=== PATIENT | female | born 1995 | race Caucasian/White ===

== ENCOUNTER 2018-05-17 00:13 | Emergency (ER) | payer SELFPAY ==
--- NOTE | 2018-05-17 00:25 | ER Report ---
History and Physical Time Seen By MD: 00:17 HPI/ROS CHIEF COMPLAINT: Back pain, right foot pain HISTORY OF PRESENT ILLNESS: 23-year-old female presents ambulatory to the ER complaining of numerous complaints. She's complaining of severe left sciatic pain down her left lower extremity. She's been having diarrhea for 5 days. She was seen at urgent care today was severe nausea and diarrhea. She was started on Cipro after being diagnosed with a UTI. She's been having fevers for 5 days of diarrhea. She notes no blood in the diarrhea or mucus. Patient denies recent travel or exposure to ill contacts. 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 She is a student at . She was seen earlier today at urgent care. She was diagnosed with urinary tract infection, and infectious diarrhea. She was started on Cipro 500 mg twice a day and given Zofran for nausea control. Patient's also complaining of severe bilateral metatarsalgia from the time she spends on her feet at work 3 evenings the night after attending college. She notes the pain gets better with ibuprofen, but never completely goes away. It persisted for several weeks. It's worse now. She isn't wearing arch supports with little improvement of her symptoms. REVIEW OF SYSTEMS: Respiratory: No cough, no dyspnea. Cardiovascular: No chest pain, no palpitations. Gastrointestinal: As above Musculoskeletal: As above Allergies: Coded Allergies: Sulfa (Sulfonamide Antibiotics) (Verified Allergy, Unknown, 05/17/18) amoxicillin (Verified Allergy, Unknown, 05/17/18) Home Meds Active Scripts Prednisone 10 Mg Tab (PREDNISONE 10 MG TAB) 10 Mg Tablet, 10 MG PO QDAY PRN for reduce inflammation, #9 2 tabs daily for 3 days 1 tab daily for 3 days Prov:WILBER PARRISHKike Otto DO 05/17/18 Reported Medications Ondansetron (ZOFRAN ODT) 4 Mg Tab.rapdis, 4 MG PO Q6-8H, TAB.MARTI 05/17/18 Ciprofloxacin 500 Mg Tab (CIPROFLOXACIN 500 MG TAB) 500 Mg Tablet, 500 MG PO Q12H, #14 TAB 05/17/18 Reviewed Nurses Notes: Yes Old Medical Records Reviewed: Yes Constitutional Vital Sign - Last 24 Hours 05/17/18 05/17/18 05/17/18 05/17/18 00:20 00:23 00:30 01:13 Temp 98.3 Pulse 84 Resp 20 B/P (MAP) 128/73 (91) 128/73 110/75 (87) Pulse Ox 95 96 05/17/18 01:43 Pulse 79 Pulse Ox 98 Intake and Output 05/16/18 05/16/18 05/17/18 15:00 23:00 07:00 Intake Total 1000 ml Balance 1000 ml Physical Exam General Appearance: The patient is alert, has no immediate need for airway protection and no current signs of toxicity. Vital signs stable, afebrile HEENT: Pupils equal and round no injection. TMs normal, oropharynx without redness or exudate Respiratory: Chest is non tender, lungs are clear to auscultation. Cardiac: regular rate and rhythm Gastrointestinal: Abdomen is soft and non tender, no masses, bowel sounds normal. Musculoskeletal: Neck: Neck is supple and non tender. Back:, There is no tenderness over the lumbar midline or paraspinous muscles. There is some tenderness over the left SI joint and along the course of the sciatic nerve. Extremities have full range of motion and are non tender. There is tenderness to the metatarsal heads of both feet, the right greater than left. Skin: No rashes or lesions. DIFFERENTIAL DIAGNOSIS: After history and physical exam differential diagnosis was considered for back pain including but not limited to muscular pain, herniated disc, spine fracture, intra-abdominal causes and urinary tract infection. Medical Decision Making Data Points Result Diagram: 05/17/1813905/17/18 014 Laboratory Hematology Test 05/17/18 01:40 Red Blood Count 4.59 M/uL (4.17-5.56) Mean Corpuscular Volume 88.1 fL (80.0-96.0) Mean Corpuscular Hemoglobin 30.3 pg (26.0-33.0) Mean Corpuscular Hemoglobin Concent 34.4 g/dL (32.0-36.0) Red Cell Distribution Width 12.4 % (11.5-14.5) Mean Platelet Volume 7.4 fL (7.2-11.1) Neutrophils (%) (Auto) 69.7 % (39.4-72.5) Lymphocytes (%) (Auto) 15.2 % (17.6-49.6) Monocytes (%) (Auto) 11.9 % (4.1-12.4) Eosinophils (%) (Auto) 2.6 % (0.4-6.7) Basophils (%) (Auto) 0.6 % (0.3-1.4) Nucleated RBC Relative Count (auto) 0.0 /100WBC Neutrophils # (Auto) 4.2 K/uL (2.0-7.4) Lymphocytes # (Auto) 0.9 K/uL (1.3-3.6) Monocytes # (Auto) 0.7 K/uL (0.3-1.0) Eosinophils # (Auto) 0.2 K/uL (0.0-0.5) Basophils # (Auto) 0.0 K/uL (0.0-0.1) Nucleated RBC Absolute Count (auto) 0.00 K/uL Sodium Level 137 mmol/L (137-145) Potassium Level 3.8 mmol/L (3.5-5.0) Chloride Level 104 mmol/L (98-107) Carbon Dioxide Level 23 mmol/L (22-31) Blood Urea Nitrogen 8 mg/dl (7-18) Creatinine 0.70 mg/dl (0.52-1.04) Glomerular Filtration Rate Calc > 60.0 Random Glucose 98 mg/dl (75-110) Calcium Level 9.4 mg/dl (8.4-10.2) Total Bilirubin 0.8 mg/dl (0.2-1.3) Aspartate Amino Transf (AST/SGOT) 23 U/L (0-35) Alanine Aminotransferase (ALT/SGPT) 40 U/L (0-56) Alkaline Phosphatase 67 U/L (0-126) Total Protein 6.9 g/dl (6.3-8.2) Albumin 4.0 g/dl (3.5-5.0) Chemistry Test 05/17/18 01:40 White Blood Count 6.0 k/uL (4.5-11.0) Red Blood Count 4.59 M/uL (4.17-5.56) Hemoglobin 13.9 g/dL (12.0-16.0) Hematocrit 40.4 % (34.0-47.0) Mean Corpuscular Volume 88.1 fL (80.0-96.0) Mean Corpuscular Hemoglobin 30.3 pg (26.0-33.0) Mean Corpuscular Hemoglobin Concent 34.4 g/dL (32.0-36.0) Red Cell Distribution Width 12.4 % (11.5-14.5) Platelet Count 309 K/uL (150-450) Mean Platelet Volume 7.4 fL (7.2-11.1) Neutrophils (%) (Auto) 69.7 % (39.4-72.5) Lymphocytes (%) (Auto) 15.2 % (17.6-49.6) Monocytes (%) (Auto) 11.9 % (4.1-12.4) Eosinophils (%) (Auto) 2.6 % (0.4-6.7) Basophils (%) (Auto) 0.6 % (0.3-1.4) Nucleated RBC Relative Count (auto) 0.0 /100WBC Neutrophils # (Auto) 4.2 K/uL (2.0-7.4) Lymphocytes # (Auto) 0.9 K/uL (1.3-3.6) Monocytes # (Auto) 0.7 K/uL (0.3-1.0) Eosinophils # (Auto) 0.2 K/uL (0.0-0.5) Basophils # (Auto) 0.0 K/uL (0.0-0.1) Nucleated RBC Absolute Count (auto) 0.00 K/uL Glomerular Filtration Rate Calc > 60.0 Calcium Level 9.4 mg/dl (8.4-10.2) Total Bilirubin 0.8 mg/dl (0.2-1.3) Aspartate Amino Transf (AST/SGOT) 23 U/L (0-35) Alanine Aminotransferase (ALT/SGPT) 40 U/L (0-56) Alkaline Phosphatase 67 U/L (0-126) Total Protein 6.9 g/dl (6.3-8.2) Albumin 4.0 g/dl (3.5-5.0) EKG/Imaging Imaging X-ray: Lumbar spine 2 views was obtained. I viewed the images myself on the PACS system. My interpretation of the images is: No fracture no dislocation or malalignment, displaces are well preserved. Normal curvature noted.. The radiologist interpretation had no clinically significant variation from this interpretation. ED Course/Re-evaluation Clinical Indication for ER IV: Hydration, IV Access ED Course Patient was admitted to an examination room. H&P was done. The differential diagnoses was considered. On clinical examination. She has exacerbation of numerous complaints, which sounds like chronic metatarsalgia, sciatic nerve problems. She is currently got a urinary tract infection and gastroenteritis with infectious diarrhea. He was started on Cipro earlier today. I think that she is having reactive arthritis and inflammation to her current infection.. CBC and chemistries were unremarkable. Patient was treated with IV fluid hy dration. She received Toradol 60 mg IM and Norflex muscle relaxant. She'll be given 40 of prednisone at discharge. She be discharged with 2 Lortab pills to use for temporary relief. Patient will be treated with a prednisone taper. She is advised to continue on the Cipro until it's finished. Decision to Disposition Date: May 17, 2018 Decision to Disposition Time: 01:50 Depart Departure Latest Vital Signs Vital Signs Date Time Temp Pulse Resp B/P (MAP) Pulse Ox O2 Delivery O2 Flow Rate FiO2 05/17/18 01:43 79 98 05/17/18 00:30 110/75 (87) 05/17/18 00:23 98.3 20 Impression: Primary Impression: Diarrhea Additional Impressions: Sciatica Metatarsalgia Urinary tract infection Condition: Improved Disposition: HOME OR SELF-CARE Referrals: ALBERTO FREITAS MD, FARRUKH MD New Scripts Prednisone 10 Mg Tab (PREDNISONE 10 MG TAB) 10 Mg Tablet 10 MG PO QDAY PRN for reduce inflammation, #9 2 tabs daily for 3 days 1 tab daily for 3 days Prov: KAROLINA PARRISH DO 05/17/18 Patient Instructions: Acute Diarrhea (ED), Clear Liquid Diet (ED), Sciatica (ED) Additional Instructions: Follow clear liquid diet for 24-48 hours Continue Cipro until gone Take prednisone with crackers or applesauce Take ibuprofen 200 mg 3-4 tablets 3 times a day with crackers or applesauce Follow-up with student health or primary care if unimproved in 3-5 days. Problem Qualifiers Primary Impression: Diarrhea Diarrhea type: infectious Qualified Codes: A09 - Infectious gastroenteritis and colitis, unspecified Additional Impressions: Sciatica Laterality: left Qualified Codes: M54.32 - Sciatica, left side Metatarsalgia Laterality: bilateral Qualified Codes: M77.41 - Metatarsalgia, right foot; M77.42 - Metatarsalgia, left foot Urinary tract infection Urinary tract infection type: acute cystitis Hematuria presence: without hematuria Qualified Codes: N30.00 - Acute cystitis without hematuria KAROLINA PARRISH DO May 17, 2018 00:25
[2018-05-17 00:30] VITALS: BP 110/75
[2018-05-17] MEDS ORDERED: ONDA4TAB PO (00:31)
[2018-05-17] MEDS ORDERED: CIPR-214 PO (00:31)
[2018-05-17] MEDS ORDERED: KETOROLAC 60 MG/2 ML VIAL IM ONE (00:35)
[2018-05-17] MEDS ORDERED: ORPHENADRINE CITR 100 MG TABSR PO ONE (00:35)
--- NOTE | 2018-05-17 01:26 | RADIOLOGY IMAGING REPORT ---
FACILITY: [facility] - [place] PATIENT NAME: Desirae Shell : 1995 MR: [id number] V: [id number] EXAM DATE: ORDERING PHYSICIAN: KAROLINA PARRISH TECHNOLOGIST: Location: [facility] - [place] Patient: Desirae Shell : 1995 Visit/Account:[id number] Date of Sevice: 05/17/2018 EXAMINATION: Lumbar Spine 2 views HISTORY: Severe left lower back pain. COMPARISON: None. FINDINGS: There are 5 lumbar-type vertebral segments. No radiographic evidence of acute fracture or subluxation in the lumbar spine. Normal alignment. Vertebral body height and disc spaces are preserved. IMPRESSION: Unremarkable lumbar spine series. Report Dictated By: Jorge Platt MD at 05/17/2018 1:21 AM Report E-Signed By: Jorge Platt MD at 05/17/2018 1:22 AM WSN:[id number]
[2018-05-17] MEDS ORDERED: NS(*) 0.9% 1000 ML BAG 1,000 ML IV ONE (01:30)
[2018-05-17 01:54] LABS: PLATELET COUNT, AUTOMATED 309 K/uL (150-450)
[2018-05-17] MEDS ORDERED: MORPHINE 4 MG/ML SDV IVP ONE (02:05)
[2018-05-17] MEDS ORDERED: PRED-1 PO (02:05)
[2018-05-17] MEDS ORDERED: ACET/HYDROC 5/325MG TH ER ONLY 2 TAB/BOTTLE PO ONE (02:30)
[2018-05-17] MEDS ORDERED: predniSONE 20 MG TAB PO ONE (02:30)
== END 2018-05-17 02:46 | disposition home or self-care (01) ==
LOC: ER 00:40
DX: A09 Infectious gastroenteritis and colitis, unspecified (principal); M54.32 Sciatica, left side; M77.41 Metatarsalgia, right foot; M77.42 Metatarsalgia, left foot; N30.00 Acute cystitis without hematuria
CPT/HCPCS: 72100; 85025; 96361; 96372; 96374; 99284; J1885; J2270; J7030; J7512; 82040; 82247; 82310; 82374; 82435; 82565; 82947; 84075; 84132; 84155; 84295; 84450; 84460; 84520

== ENCOUNTER 2018-05-20 09:14 | Emergency (ER) | payer SELFPAY ==
[~2018-05-20 09:14] MED LIST: CIPR-214 PO; ONDA4TAB PO; PRED-1 PO
--- NOTE | 2018-05-20 09:19 | ER Report ---
History and Physical Time Seen By MD: 09:19 HPI/ROS CHIEF COMPLAINT: Bilateral lower extremity edema, right ankle pain, nausea. Patient is a 23-year-old female here with complaints of right ankle pain which has been ongoing for past several days, increased edema of the lower extremities bilaterally with no focal tenderness. Patient reports a history of sciatica treated for 3 days with prednisone with subsequent swelling of the lower extremities. Patient also reports having a GI illness recently which is resolving. She does describe her sciatica pain as starting in her hips and radiating down to her posterior thigh stopping at the knees. HISTORY OF PRESENT ILLNESS: Patient is a 23-year-old female here with complaints of Bilateral lower extremity edema, right ankle pain, nausea. Patient is a 23-year-old female here with complaints of right ankle pain which has been ongoing for past several days, increased edema of the lower extremities bilaterally with no focal tenderness. Patient reports a history of sciatica treated for 3 days with prednisone with subsequent swelling of the lower extremities. Patient also reports having a GI illness recently which is resolving. She does describe her sciatica pain as starting in her hips and radiating down to her posterior thigh stopping at the knees. REVIEW OF SYSTEMS: Constitutional: No fever, no chills. Eyes: No discharge. ENT: No sore throat. Cardiovascular: No chest pain, no palpitations. Respiratory: No cough, no shortness of breath. Gastrointestinal: No abdominal pain, no vomiting. Genitourinary: No hematuria. Musculoskeletal: + lower back pain, + lower extremity swelling and ankle pains Skin: No rashes. Neurological: No headache. Allergies: Coded Allergies: Sulfa (Sulfonamide Antibiotics) (Verified Allergy, Unknown, 05/20/18) amoxicillin (Verified Allergy, Unknown, 05/20/18) Home Meds Reported Medications Ondansetron (ZOFRAN ODT) 4 Mg Tab.rapdis, 4 MG PO Q6-8H, TAB.MARTI 05/17/18 Discontinued Reported Medications Ciprofloxacin 500 Mg Tab (CIPROFLOXACIN 500 MG TAB) 500 Mg Tablet, 500 MG PO Q12H, #14 TAB 05/17/18 Discontinued Scripts Prednisone 10 Mg Tab (PREDNISONE 10 MG TAB) 10 Mg Tablet, 10 MG PO QDAY PRN for reduce inflammation, #9 2 tabs daily for 3 days 1 tab daily for 3 days Prov:KAROLINA PARRISH DO 11/7/18 Constitutional Vital Sign - Last 24 Hours 11/10/18 11/10/18 11/10/18 11/10/18 09:14 09:24 09:26 09:33 Temp 98.8 Pulse 103 106 Resp 14 B/P (MAP) 127/88 (101) 127/88 115/71 (86) Pulse Ox 92 89 O2 Delivery Room Air 05/20/18 05/20/18 05/20/18 05/20/18 09:44 10:00 10:05 10:30 Pulse 94 96 B/P (MAP) 91/51 (64) 109/94 (99) Pulse Ox 96 98 05/20/18 05/20/18 05/20/18 10:35 11:00 11:05 Pulse 80 97 B/P (MAP) 113/62 (79) Pulse Ox 96 94 Physical Exam General Appearance: The patient is alert, has no immediate need for airway protection and no signs of toxicity. NAD Eyes: Pupils equal and round no pallor or injection. ENT, Mouth: Mucous membranes are moist. Respiratory: There are no retractions, lungs are clear to auscultation. Cardiovascular: Regular rate and rhythm. Gastrointestinal: Abdomen is soft and non tender, no masses, bowel sounds normal. Neurological: No focal neuro deficits Skin: Warm and dry, no rashes. Musculoskeletal: Neck is supple non tender. + b/l lower extremity edema with ankle tenderness DIFFERENTIAL DIAGNOSIS: After history and physical exam differential diagnosis was considered for viral illness, sciatica, autoimmune process, sarcoidosis, arthritis, myositis, dehydration, electrolyte abnormality Medical Decision Making Data Points Result Diagram: 05/20/1855 05/20/18 0955 Laboratory Hematology Test 05/20/18 09:55 05/20/18 11:36 Red Blood Count 4.13 M/uL (4.17-5.56) Mean Corpuscular Volume 89.1 fL (80.0-96.0) Mean Corpuscular Hemoglobin 30.5 pg (26.0-33.0) Mean Corpuscular Hemoglobin Concent 34.3 g/dL (32.0-36.0) Red Cell Distribution Width 12.8 % (11.5-14.5) Mean Platelet Volume 7.4 fL (7.2-11.1) Neutrophils (%) (Auto) 76.7 % (39.4-72.5) Lymphocytes (%) (Auto) 11.4 % (17.6-49.6) Monocytes (%) (Auto) 9.5 % (4.1-12.4) Eosinophils (%) (Auto) 2.0 % (0.4-6.7) Basophils (%) (Auto) 0.4 % (0.3-1.4) Nucleated RBC Relative Count (auto) 0.1 /100WBC Neutrophils # (Auto) 6.3 K/uL (2.0-7.4) Lymphocytes # (Auto) 0.9 K/uL (1.3-3.6) Monocytes # (Auto) 0.8 K/uL (0.3-1.0) Eosinophils # (Auto) 0.2 K/uL (0.0-0.5) Basophils # (Auto) 0.0 K/uL (0.0-0.1) Nucleated RBC Absolute Count (auto) 0.01 K/uL Prothrombin Time 13.9 seconds (12.0-14.4) Prothromb Time International Ratio 1.07 Activated Partial Thromboplast Time 37 seconds (23-35) Sodium Level 139 mmol/L (137-145) Potassium Level 3.5 mmol/L (3.5-5.0) Chloride Level 102 mmol/L (98-107) Carbon Dioxide Level 28 mmol/L (22-31) Blood Urea Nitrogen 8 mg/dl (7-18) Creatinine 0.60 mg/dl (0.52-1.04) Glomerular Filtration Rate Calc > 60.0 Random Glucose 83 mg/dl (75-110) Calcium Level 8.8 mg/dl (8.4-10.2) Total Bilirubin 0.5 mg/dl (0.2-1.3) Aspartate Amino Transf (AST/SGOT) 20 U/L (0-35) Alanine Aminotransferase (ALT/SGPT) 28 U/L (0-56) Alkaline Phosphatase 57 U/L (0-126) Total Creatine Kinase < 20 U/L (30-135) C-Reactive Protein 17.6 mg/dl (<1.0) Total Protein 6.3 g/dl (6.3-8.2) Albumin 3.3 g/dl (3.5-5.0) Lipase 28 U/L (23-300) Human Chorionic Gonadotropin, Qual Negative (NEGATIVE) Urine Color Straw Urine Clarity Clear Urine pH 6.0 pH (4.8-9.5) Urine Specific [place] 1.003 Urine Protein Negative mg/dL (NEGATIVE) Urine Glucose (UA) Negative mg/dL (NEGATIVE) Urine Ketones Negative mg/dL (NEGATIVE) Urine Blood Moderate (NEGATIVE) Urine Nitrite Negative (NEGATIVE) Urine Bilirubin Negative (NEGATIVE) Urine Urobilinogen Negative mg/dL (0.2-1.9) Urine Leukocyte Esterase Negative (NEGATIVE) Urine RBC 1 /HPF (0-2/HPF) Urine WBC 5 /HPF (0-5/HPF) Urine Squamous Epithelial Cells Many /LPF (</=FEW) Urine Bacteria Few /HPF (NONE-FEW) Urine Mucus None /HPF (NONE-FEW) Chemistry Test 05/20/18 09:55 05/20/18 11:36 White Blood Count 8.2 k/uL (4.5-11.0) Red Blood Count 4.13 M/uL (4.17-5.56) Hemoglobin 12.6 g/dL (12.0-16.0) Hematocrit 36.8 % (34.0-47.0) Mean Corpuscular Volume 89.1 fL (80.0-96.0) Mean Corpuscular Hemoglobin 30.5 pg (26.0-33.0) Mean Corpuscular Hemoglobin Concent 34.3 g/dL (32.0-36.0) Red Cell Distribution Width 12.8 % (11.5-14.5) Platelet Count 340 K/uL (150-450) Mean Platelet Volume 7.4 fL (7.2-11.1) Neutrophils (%) (Auto) 76.7 % (39.4-72.5) Lymphocytes (%) (Auto) 11.4 % (17.6-49.6) Monocytes (%) (Auto) 9.5 % (4.1-12.4) Eosinophils (%) (Auto) 2.0 % (0.4-6.7) Basophils (%) (Auto) 0.4 % (0.3-1.4) Nucleated RBC Relative Count (auto) 0.1 /100WBC Neutrophils # (Auto) 6.3 K/uL (2.0-7.4) Lymphocytes # (Auto) 0.9 K/uL (1.3-3.6) Monocytes # (Auto) 0.8 K/uL (0.3-1.0) Eosinophils # (Auto) 0.2 K/uL (0.0-0.5) Basophils # (Auto) 0.0 K/uL (0.0-0.1) Nucleated RBC Absolute Count (auto) 0.01 K/uL Prothrombin Time 13.9 seconds (12.0-14.4) Prothromb Time International Ratio 1.07 Activated Partial Thromboplast Time 37 seconds (23-35) Glomerular Filtration Rate Calc > 60.0 Calcium Level 8.8 mg/dl (8.4-10.2) Total Bilirubin 0.5 mg/dl (0.2-1.3) Aspartate Amino Transf (AST/SGOT) 20 U/L (0-35) Alanine Aminotransferase (ALT/SGPT) 28 U/L (0-56) Alkaline Phosphatase 57 U/L (0-126) Total Creatine Kinase < 20 U/L (30-135) C-Reactive Protein 17.6 mg/dl (<1.0) Total Protein 6.3 g/dl (6.3-8.2) Albumin 3.3 g/dl (3.5-5.0) Lipase 28 U/L (23-300) Human Chorionic Gonadotropin, Qual Negative (NEGATIVE) Urine Color Straw Urine Clarity Clear Urine pH 6.0 pH (4.8-9.5) Urine Specific [place] 1.003 Urine Protein Negative mg/dL (NEGATIVE) Urine Glucose (UA) Negative mg/dL (NEGATIVE) Urine Ketones Negative mg/dL (NEGATIVE) Urine Blood Moderate (NEGATIVE) Urine Nitrite Negative (NEGATIVE) Urine Bilirubin Negative (NEGATIVE) Urine Urobilinogen Negative mg/dL (0.2-1.9) Urine Leukocyte Esterase Negative (NEGATIVE) Urine RBC 1 /HPF (0-2/HPF) Urine WBC 5 /HPF (0-5/HPF) Urine Squamous Epithelial Cells Many /LPF (</=FEW) Urine Bacteria Few /HPF (NONE-FEW) Urine Mucus None /HPF (NONE-FEW) Coagulation Test 05/20/18 09:55 Prothrombin Time 13.9 seconds Prothromb Time International Ratio 1.07 Activated Partial Thromboplast Time 37 seconds Urinalysis Test 05/20/18 11:36 Urine Color Straw Urine Clarity Clear Urine pH 6.0 pH (4.8-9.5) Urine Specific [place] 1.003 Urine Protein Negative mg/dL (NEGATIVE) Urine Glucose (UA) Negative mg/dL (NEGATIVE) Urine Ketones Negative mg/dL (NEGATIVE) Urine Blood Moderate (NEGATIVE) Urine Nitrite Negative (NEGATIVE) Urine Bilirubin Negative (NEGATIVE) Urine Urobilinogen Negative mg/dL (0.2-1.9) Urine Leukocyte Esterase Negative (NEGATIVE) Urine RBC 1 /HPF (0-2/HPF) Urine WBC 5 /HPF (0-5/HPF) Urine Squamous Epithelial Cells Many /LPF (</=FEW) Urine Bacteria Few /HPF (NONE-FEW) Urine Mucus None /HPF (NONE-FEW) EKG/Imaging Imaging ANKLE 2 VIEW RIGHT History: Right ankle pain. Comparison study: None. Findings: There is no fracture involving the right ankle. The talar dome and base of the fifth metatarsal are intact. There is diffuse soft tissue prominence. IMPRESSION: No findings of a fracture involving the right ankle. The talar dome and base of the fifth metatarsal are intact. ED Course/Re-evaluation ED Course Patient is a 23-year-old female here with complaints of bilateral lower extremity edema, lower extremity pain and ankle pains worse on the right. Patient reports having a recent GI illness which is seemingly resolving. She does have a history of sciatica and was treated with burst therapy prednisone. Right ankle x-ray showed no acute fractures. Patient didn't report that both of her lower extremities seem to be painful and swollen. There was no leukocytosis, electrolytes were within normal limits, urinalysis showed no signs of infection. Kidney function was intact. CRP was found to be elevated at 17.6. It is unclear at this time what is causing the marked elevation since the patient reports having a recent gastrointestinal illness, recent history of sciatica, lower extremity edema. I added on a CPK which was found to be negative making a myositis less likely. Patient's consolation symptoms may very well be a postinfectious however based on her presentation and the elevated CRP, patient will need to be followed up for possible autoimmune process such as sarcoid. There are no rashes or erythema nodosum present on physical exam at this time. Patient was given Toradol with moderate relief of pain. She was advised to continue NSAID therapy and dihydrate aggressively in the next couple days and to follow-up with her PCP. I explained these concerns with the patient and she voiced understanding. Patient was stable at time of discharge. Decision to Disposition Date: May 20, 2018 Decision to Disposition Time: 12:28 Depart Departure Latest Vital Signs Vital Signs Date Time Temp Pulse Resp B/P (MAP) Pulse Ox O2 Delivery O2 Flow Rate FiO2 05/20/18 11:05 97 94 05/20/18 11:00 113/62 (79) 05/20/18 09:26 98.8 14 Room Air Impression: Primary Impression: Swelling of both lower extremities Additional Impression: Lower extremity pain, bilateral Condition: Improved Disposition: HOME OR SELF-CARE Patient Instructions: Edema,Peripheral Additional Instructions: Please drink plenty of water. You may take naproxen up to 500 mg twice daily for the next several days. Your CRP or inflammatory marker was found to be elevated today, please follow up closely with your family doctor in the next couple days for follow-up evaluation. Please return immediately if you develop increasing pain, increased swelling, dark urine, fevers, shortness of breath, rashes. Problem Qualifiers BIANCA MASCORRO DO May 20, 2018 09:19
[2018-05-20] MEDS ORDERED: KETOROLAC 60 MG/2 ML VIAL IM ONE (10:00)
[2018-05-20 10:11] LABS: PLATELET COUNT, AUTOMATED 340 K/uL (150-450)
[2018-05-20 10:13] LABS: INR 1.07
--- NOTE | 2018-05-20 10:38 | RADIOLOGY IMAGING REPORT ---
FACILITY: [facility] PATIENT NAME: Desirae Shell : 1995 MR: [id number] V: [id number] EXAM DATE: ORDERING PHYSICIAN: BIANCA MASCORRO TECHNOLOGIST: Location: [facility] - [place] Patient: Desirae Shell : 1995 Visit/Account:[id number] Date of Sevice: 05/20/2018 ANKLE 2 VIEW RIGHT History: Right ankle pain. Comparison study: None. Findings: There is no fracture involving the right ankle. The talar dome and base of the fifth metat arsal are intact. There is diffuse soft tissue prominence. IMPRESSION: No findings of a fracture involving the right ankle. The talar dome and base of the fifth metatarsal are intact. Report Dictated By: Milan Carranza MD at 05/20/2018 10:33 AM Report E-Signed By: Milan Carranza MD at 05/20/2018 10:34 AM WSN:[id number]
[2018-05-20 12:00] VITALS: BP 110/71
== END 2018-05-20 12:45 | disposition home or self-care (01) ==
LOC: ER 09:26
DX: R60.0 Localized edema (principal); M79.605 Pain in left leg; M79.604 Pain in right leg
CPT/HCPCS: 73600; 81001; 82550; 83690; 84703; 85025; 85610; 85730; 86140; 96372; 99283; J1885; 82040; 82247; 82310; 82374; 82435; 82565; 82947; 84075; 84132; 84155; 84295; 84450; 84460; 84520

== ENCOUNTER 2018-06-15 13:06 | Emergency (ER) | payer SELFPAY ==
--- NOTE | 2018-06-15 13:15 | ER Report ---
History and Physical Time Seen By MD: 13:15 Hx. of Stated Complaint: Patient reacently dx with ankylosing spondylitis and reactive arthritis. Started meloxicam two days ago and today had sudden onset of her typical migraine type symptoms that she hasn't had for a year. Patient is also on prednisone and also in addition all of these symptoms started when a "huge cyst" popped on her labia and expelled a large amount of foul smelling fluid which she has also had in the past. HPI/ROS CHIEF COMPLAINT: Migraine headache with visual disturbance HISTORY OF PRESENT ILLNESS: This is a 23-year-old female who presents to the emergency department for a migraine headache with visual disturbances. The patient states she was started on meloxicam for her ankylosing spondylitis 2 days ago, today she developed some visual disturbances in her left eye approximately one hour prior to arrival, then developed a migraine headache, visual disturbances did begin to haim, she became concerned and decided to come in for further evaluation. Patient does have a history of migraine headaches however she's never had visual disturbances. She also states she's been under increased rest over the last several weeks with her school studies and her arthritis, she has been seen and evaluated by rheumatology in [place]. Patient also states that she is taking prednisone and was given the meloxicam was concerned that there was maybe some reaction between the 2 of these especially since just starting the meloxicam. She also had a cyst on her left labia that did rupture today and she's been dealing with this as well. No fevers or chills. Mild photophobia. No chest pain or shortness of breath. No rashes. REVIEW OF SYSTEMS: Constitutional: No fever, no chills. Eyes: As above. ENT: No sore throat. Cardiovascular: No chest pain, no palpitations. Respiratory: No cough, no shortness of breath. Gastrointestinal: No abdominal pain, no vomiting. Genitourinary: No hematuria. Musculoskeletal: No back pain. Skin: No rashes. Neurological: As above. Allergies: Coded Allergies: Sulfa (Sulfonamide Antibiotics) (Verified Allergy, Unknown, 06/15/18) amoxicillin (Verified Allergy, Unknown, 06/15/18) Home Meds Reported Medications Prednisone (PREDNISONE) 20 Mg Tablet, 50 MG PO QDAY, TAB 06/15/18 Meloxicam (MOBIC) 15 Mg Tablet, 15 MG PO QDAY 06/15/18 Discontinued Reported Medications Ondansetron (ZOFRAN ODT) 4 Mg Tab.rapdis, 4 MG PO Q6-8H, TAB.MARTI 05/17/18 Past Medical/Surgical History The patient does have a past medical and surgical history sciatica, wears glasses, post extraction, tonsillectomy, and closing spondylitis, Bartholin's cysts. Reviewed Nurses Notes: Yes Hx Substance Use Disorder: No Hx Alcohol Use: No Constitutional Vital Sign - Last 24 Hours 06/15/18 06/15/18 13:11 15:40 Temp 97.5 Pulse 81 80 Resp 16 16 B/P (MAP) 132/80 116/97 (103) Pulse Ox 96 95 O2 Delivery Room Air Room Air Physical Exam General Appearance: The patient is alert, has no immediate need for airway protection and no signs of toxicity. Eyes: Pupils equal and round no pallor or injection. EOMs intact. No nystagmus. ENT, Mouth: Mucous membranes are moist. Respiratory: There are no retractions, lungs are clear to auscultation. Cardiovascular: Regular rate and rhythm. Gastrointestinal: Abdomen is soft and non tender, no masses, bowel sounds normal. Neurological: Alert and oriented 4. Moving all extremities. Following all commands. No focal neuro deficits. No numbness or tingling. Skin: Warm and dry, no rashes. Musculoskeletal: Neck is supple non tender. Extremities are nontender, nonswollen and have full range of motion. DIFFERENTIAL DIAGNOSIS: After history and physical exam differential diagnosis was considered for headache including but not limited to subarachnoid hemorrhage, migraine headache, tension headache and infectious causes such as meningitis, pharyngitis and sinusitis. Medical Decision Making EKG/Imaging Imaging CT Head without contrast Indication: Headache with visual changes. Comparison: None available Technique: Axial CT images were obtained through the brain from the skull base to the vertex without administration of IV contrast. Reformatted coronal and sagittal images were also obtained. One of the following dose optimization techniques was utilized in the performance of this exam: automated exposure control; adjustment of the mA and/or kV according to the patient's size; or use of an iterative reconstruction technique. Specific details can be referenced in the facility's radiology CT exam operational policy. Findings: No evidence of mass, mass effect, or midline shift. No acute intracranial hemorrhage or acute territorial infarction. No extra axial fluid collection or hydrocephalus. No abnormal density. Grewal/white matter differentiation appears normal. Bony structures show no fractures or lesions. Left maxillary sinus shows a 2.7 cm cyst/polyp. The remaining sinuses and mastoids visualized are clear. IMPRESSION: 1. No acute intracranial abnormality. 2. Left maxillary sinus cyst/polyp. Report Dictated By: Jamie Segovia at 06/15/2018 2:48 PM Report E-Signed By: Jamie Segovia at 06/15/2018 2:53 PM WSN:[id number] ED Course/Re-evaluation ED Course The patient was admitted to room. A history and physical were obtained. Differential diagnoses were considered. After discussion with the patient, we decided to proceed with medications that may help with her headache, she was given 25 mg IM Benadryl, Toprol 0.5 mg IM Phenergan. Patient states that after the Phenergan injection she did have some right shoulder discomfort, a lidocaine patch was applied to the area. Patient had improvement of her headache. A CT of the brain was negative for any acute abnormalities, incidental finding of a left maxillary sinus cyst or polyp. I reviewed this finding with the patient and her grandmother who was at the bedside. I did recommend a sitz bath for what sounded like a Bartholin's cyst, no antibiotics were initiated at this time. Should she have any concerns she will follow-up with [facility] or return to the ER for further evaluation. The patient was in agreement with this plan of care and discharged home. Decision to Disposition Date: Jun 15, 2018 Decision to Disposition Time: 15:27 Depart Departure Latest Vital Signs Vital Signs Date Time Temp Pulse Resp B/P (MAP) Pulse Ox O2 Delivery O2 Flow Rate FiO2 06/15/18 15:40 80 16 116/97 (103) 95 Room Air 06/15/18 13:11 97.5 Impression: Primary Impression: Migraine headache Additional Impression: Ocular migraine Condition: Stable Disposition: HOME OR SELF-CARE Patient Instructions: Bartholin Cyst (ED), Migraine Headache (ED), Ocular Migraine (ED), Sitz Bath (GEN) Additional Instructions: The CT of the brain showing a cyst or polyp in the Maxillary sinus, no other findings. Typically there is nothing that needs to be done with the cyst. I do believe that you did have an ocular migraine, CVA information that I provided a discharge paperwork. If you have recurrent migraine headaches it would not be unreasonable to follow- up with a neurologist. I would recommend stopping the Meloxicam until you follow up with your woven wood shade assembler. Continue with the prednisone. It does sound as though you had a Bartholin's cyst or abscess that ruptured, I would recommend a sitz bath, continue to evaluate, if the surrounding tissue b egins to increase in redness or swelling or you have any other concerns I would follow-up with [facility], at which time they may twitch on an antibiotic. You may continue to have right shoulder pain for the next couple of hours, you can leave the lidocaine patch on for 12 hours, then remove it. Be sure to drink plenty of water. Go home, get as much rest as possible. Return to the emergency department for any other concerns or worsening symptoms. Problem Qualifiers Primary Impression: Migraine headache Migraine type: unspecified Status migrainosus presence: without status migrainosus Intractability: not intractable Qualified Codes: G43.909 - Migraine, unspecified, not intractable, without status migrainosus GALLITO PATTON COOLING TOWER OPERATOR-BC Jun 15, 2018 13:15
[2018-06-15] MEDS ORDERED: PRED20TA6 PO (13:16)
[2018-06-15] MEDS ORDERED: MELO-150 PO (13:16)
[2018-06-15] MEDS ORDERED: diphenhydrAMINE 50 MG/ML VIAL IM ONE (13:40)
[2018-06-15] MEDS ORDERED: PROMETHAZINE 25 MG/ML 1 ML AMP IVP ONE (13:40)
[2018-06-15] MEDS ORDERED: PROMETHAZINE 25 MG/ML 1 ML AMP IM ONE (13:45)
--- NOTE | 2018-06-15 14:58 | RADIOLOGY IMAGING REPORT ---
FACILITY: [facility] - [place] PATIENT NAME: Desirae Shell : 1995 MR: [id number] V: [id number] EXAM DATE: [id number] ORDERING PHYSICIAN: GALLITO PATTON TECHNOLOGIST: Location: [facility] [place] Patient: Desirae Shell : 1995 Visit/Account:[id number] Date of Sevice: 06/15/2018 CT Head without contrast Indication: Headache with visual changes. Comparison: None available Technique: Axial CT images were obtained through the brain from the skull base to the vertex without administration of IV contrast. Reformatted coronal and sagittal images were also obtained. One of the following dose optimization techniques was utilized in the performance of this exam: autom ated exposure control; adjustment of the mA and/or kV according to the patient's size; or use of an i terative reconstruction technique. Specific details can be referenced in the facility's radiology CT exam operational policy. Findings: No evidence of mass, mass effect, or midline shift. No acute intracranial hemorrhage or acute territorial infarction. No extra axial fluid collection or hydrocephalus. No abnormal density. Grewal/white matter differentiat ion appears normal. Bony structures show no fractures or lesions. Left maxillary sinus shows a 2.7 cm cyst/polyp. The remaining sinuses and mastoids visualized are kip ar. IMPRESSION: 1. No acute intracranial abnormality. 2. Left maxillary sinus cyst/polyp. Report Dictated By: Jamie Segovia at 06/15/2018 2:48 PM Report E-Signed By: Jamie Segovia at 06/15/2018 2:53 PM WSN:[id number]
[2018-06-15] MEDS ORDERED: LIDOCAINE 5% PATCH TP SCH (15:30)
[2018-06-15 15:40] VITALS: BP 116/97
[2018-06-15] MEDS ORDERED: PATCH REMOVAL 1 EA TOP SCH (21:00)
== END 2018-06-15 13:48 | disposition home or self-care (01) ==
LOC: ER 13:12
DX: G43.809 Other migraine, not intractable, without status migrainosus (principal)
CPT/HCPCS: 70450; 96372; 99284; J1200; J2550